=== PATIENT | male | born 1960 | race Caucasian/White ===

== ENCOUNTER → 2024-05-30 | Outpatient (CLI) | payer OTHER, SELFPAY ==
--- NOTE | 2024-05-30 07:48 | ART_ITS ---
Reason For Study: PVD Procedure A bilateral lower extremity continuous wave Doppler with analog waveform analysis,segmental pressures,and ankle brachial indexes without exercise. Left Segmental Pressures Left brachial= 118mmHg. Left posterior tibial artery = 155mmHg. Left dorsalis pedis artery = 130mmHg. Left digit = 105 mmHg. The left dorsalis pedis waveforms are triphasic. The left posterior tibial artery waveforms are triphasic. Right Segmental Pressures Right brachial= 119mmHg. Right posterior tibial artery = 134mmHg. Right dorsalis pedis artery = 118mmHg. Right digit = 69 mmHg. The right dorsalis pedis waveforms are triphasic. The right posterior tibial artery waveforms are triphasic. Indices The right ankle brachial index by the dorsalis pedis is 0.99. The right ankle brachial index by the posterior tibial artery is 1.13. The right digital-brachial index is 0.58. The left ankle brachial index by the dorsalis pedis is 1.09. The left ankle brachial index by the posterior tibial artery is 1.30. The left digital-brachial index is 0.88. VL/Lower Ext Art Exam w/o Exercis Interpretation Summary Right LAURA 1.13, normal. Doppler/PVR waveforms of the right leg normal at rest. TBI diminished, pedal/digit disease vs spasm. Left LAURA 1.3, normal. TBI and Doppler/PVR waveforms of the left leg normal at r est. Ordering Physician: Luciano Vidales Referring Physician: Benja Higgins MD Performed By: Lorna Balderrama RVT
== END | disposition home or self-care (01) ==
LOC: CVS 07:47
PROVIDERS: PCP Family Medicine; Referring Provider Podiatrist; Visit Provider Podiatrist
DX: I73.9 Peripheral vascular disease, unspecified (principal)
CPT/HCPCS: 93923

== ENCOUNTER → 2024-07-31 | Outpatient (CLI) | payer OTHER, SELFPAY ==
--- NOTE | 2024-07-31 16:17 | RAD_ITS ---
PROCEDURE: Chest radiographs REASON FOR EXAM: ASTHMA TECHNIQUE: Two views of the chest COMPARISON: None FINDINGS: Cardiomediastinal silhouette is within normal limits. No focal consolidation, sizeable pleural effusion or pneumothorax. RAD/Chest PA and Lateral IMPRESSION: No acute airspace abnormality. [facility]
== END | disposition home or self-care (01) ==
LOC: MTRAD 16:17
PROVIDERS: PCP Family Medicine; Referring Provider Internal Medicine Pulmonary Disease; Visit Provider Internal Medicine Pulmonary Disease
DX: J45.901 Unspecified asthma with (acute) exacerbation (principal)
CPT/HCPCS: 71046

== ENCOUNTER → 2024-08-09 | Outpatient (CLI) | payer OTHER, SELFPAY ==
--- NOTE | 2024-08-09 14:53 | CT_ITS ---
PROCEDURE: CHEST WITHOUT CONTRAST 08/09/2024 REASON FOR EXAM: ASTHMA, MILD INTERMITTENT ASTHMA, UNCOMPLICATED TECHNIQUE: Chest CT without contrast. Coronal and Sagittal reconstruction series were provided. One or more dose reduction techniques were used (e.g., Automated exposure control, adjustment of the mA and/or kV according to patient size, use of iterative reconstruction technique RADIATION DOSE SUMMARY: CTDlvol: 14.62 mGy DLP: 555.98 mGycm COMPARISON: Prior chest radiograph dated July 31, 2024. FINDINGS: Hardware: None Lymph nodes: Small benign-appearing mediastinal lymph nodes. Heart and Vasculature: Coronary artery calcifications are noted. Atherosclerotic calcifications of the thoracic aorta. Thoracic aorta and pulmonary arteries have normal contours; noncontrast technique limits evaluation. Coronary Artery Calcifications: Present Lungs and Airways: Mild emphysematous changes are present. Hyperinflation. Heterogeneous infiltration in the posterior aspect of the right upper lobe abutting the right major fissure. This is suggestive of scarring. A similar-appearing area of airspace disease is seen in the anterior aspect of the left upper lobe suggestive of scarring. No definite mass lesion is seen. Calcified granuloma in the anterior aspect of the right middle lobe. Minimal scarring at the lung bases. Pleura: Unremarkable Upper Abdomen: Nonobstructive calculus in the upper pole calyx of the right kidney. Bones: Degenerative changes of the thoracic spine. CT/Chest without Contrast IMPRESSION: Coronary artery calcification (CAC) is is present Findings suggestive of scarring in the posterior aspect of the right upper lobe as well as in the anterior aspect of the left upper lobe. Six-month follow-up examination is recommended. Reading Location: [place] [id number]
== END | disposition home or self-care (01) ==
LOC: CT 14:52
PROVIDERS: PCP Family Medicine; Referring Provider Internal Medicine Pulmonary Disease; Visit Provider Internal Medicine Pulmonary Disease
DX: J45.20 Mild intermittent asthma, uncomplicated (principal)
CPT/HCPCS: 71250